=== PATIENT | female | born 1955 | race Caucasian/White ===

== ENCOUNTER → 2017-04-15 | Outpatient (CLI) | payer OTHER ==
[~2017-04-15] MED LIST: ATIVAN0.5 MG PO; CIPRO500 MG PO; ENDOCET 5-3251 EACH PO; ESCITALOPRAM OX20 MG PO; GABAPENTIN300 MG PO; GRALISE300 MG PO; HYDROCODON-ACE1 EAC7 PO; LEVOTHYROXINE112 MCG PO; METFORMIN HCL500 M1 PO; MOTRIN IB200 MG PO; PREMARIN VAGI42.5 GM TP
== END | disposition home or self-care (01) ==
LOC: NUC 06:35
DX: K31.84 Gastroparesis (principal)
CPT/HCPCS: 78264; A9541